=== PATIENT | female | born 1980 | race Caucasian/White ===

== ENCOUNTER → 2017-10-13 | Outpatient (CLI) | payer BC | END | disposition home or self-care (01) | LOC: C.PAPS 11:54 | PROVIDERS: ATTEND Physician Assistant | DX: Z01.419 Encounter for gynecological examination (general) (routine) without abnormal findings (principal); R87.616 Satisfactory cervical smear but lacking transformation zone ==

== ENCOUNTER → 2017-10-27 | Outpatient (CLI) | payer BC ==
--- NOTE | 2017-10-28 07:50 | MAMMOGRAPHY REPORT ---
BILATERAL DIGITAL DIAGNOSTIC MAMMOGRAM TOMOSYNTHESIS WITH CAD AND TARGETED BILATERAL ULTRASOUND: 10/27 CLINICAL HISTORY: The patient reports a itchy rash next to her right nipple; the rash has improved bu t the area is still itchy. She also reports that her doctors felt possible lumps in the right superi or breast and left inferior breast during clinical exams. TECHNIQUE: Breast tomosynthesis in addition to standard 2D mammography was performed. Current study was also evaluated with a Computer Aided Detection (CAD) system. Bilateral CC and MLO 2D and tomosyn thesis images were obtained. COMPARISON: Comparison is made to exams dated: 03/28/2013 ultrasound biopsy, 03/19/2013 ultrasound, an d 03/19/2013 mammogram - [facility]. BREAST COMPOSITION: The tissue of both breasts is heterogeneously dense, which may obscure small mas ses. FINDINGS: There is a lobulated partially circumscribed and partially obscured 15 mm mass within the r ight upper outer quadrant which is newly visualized compared to the prior 2012 exam. There is a lobu lated 2.6 x 1.3 cm mass within the left upper inner quadrant which does not appear significantly durán ged compared to the 2013 exam although ultrasound was performed. The remainder of both breasts demon strate no suspicious masses, calcifications, or areas of architectural distortion. A biopsy clip is again noted within the right central breast from prior benign biopsy which yielded a fibroadenoma. Targeted ultrasound was performed of the area of the palpable abnormality pointed out by the patient, in the right breast at 12:00 centered around 9 cm from the nipple. No suspicious masses or other mcdaniel spicious sonographic abnormalities are seen in this region. Incidentally noted were a few small melissa gn cysts, including a 5 mm simple cyst in the right 12:00 breast, 6 cm from the nipple and a 4 mm sim ple cyst in the right breast at 12:00, 5 cm from the nipple. In the right breast at 11:00, 5 cm from the nipple, there is a lobulated hypoechoic solid mass which measures 1.6 x 0.6 x 1.5 cm. This aretha esponds with the newly visualized mammographic mass and is indeterminate. A round hypoechoic 4 x 3 x 4 mm mass is also seen within the right 1130 breast, 5 cm from the nipple, which may represent a com plicated cyst versus solid mass such as a fibroadenoma. Targeted ultrasound was performed of the area of the palpable lump in the left breast pointed out by the patient. She cannot pinpoint the exact location of the lump but pointed to the inferior breast f rom approximately 5 to 7:00. Therefore, ultrasound was performed of this region which shows no suspi cious masses or other suspicious sonographic abnormalities. In the left 10:00 breast, 7 cm from the nipple, there is a lobulated 2.3 x 0.7 x 1.2 cm mass, which is predominantly anechoic but contains nu merous internal septations. This corresponds with the mammographic mass and could represent fibrocys tic changes versus a papillary lesion. Although this has not significantly changed compared to the 2 013 exam, ultrasound-guided biopsy is recommended to exclude the possibility of a papillary lesion. IMPRESSION: ACR BI-RADS CATEGORY 4: SUSPICIOUS, TARGETED ULTRASOUND ACR BI-RADS CATEGORY 4: SUSPICIO US 1. No suspicious mammographic or sonographic abnormalities at the sites of bilateral palpable abnorm alities pointed out by the patient. Note that the patient could not pinpoint the exact location of t he lumps felt by her providers although could locate the general regions. Recommend clinical follow- up for palpable breast lumps. Also recommend clinical follow-up for the improving right breast rash; if the rash does not resolve then consider skin punch biopsy. 2. Hypoechoic 1.6 cm mass in the right 11:00 breast. The mass is indeterminate and ultrasound-guide d core needle biopsy is recommended for further evaluation. This may represent a fibroadenoma. Pend ing benign pathology results, recommend follow-up targeted ultrasound in 6 months to evaluate a small er hypoechoic 4 mm mass in the right 11:30 breast which is probably benign and may represent a compli cated cyst versus fibroadenoma. 3. Lobulated 2.3 cm mass in the left 10:00 breast. the mass is indeterminate and ultrasound-guided core needle biopsy is recommended for further evaluation. This may represent fibrocystic changes or a papillary lesion. A phone call was made to the physician's office to confirm faxed results were received. The patient has been verbally notified of the results. She tentatively scheduled the biopsies before leaving the department. Approximately 10% of breast cancers are not detected with mammography. A negative mammographic report should not delay biopsy if a clinically suggestive mass is present. Briana Logan M.D. ah/:10/27/2017 10:38:03 Mask Layout Designer: Romana PEARSON)(Latoya), [facility] letter sent: Abnormal 4/5 BI-RADS Code: ACR BI-RADS Category 4: Suspicious Ultrasound BI-RADS: ACR BI-RADS Category 4: Suspici ous
== END | disposition home or self-care (01) ==
LOC: C.MAMM 09:33
PROVIDERS: ATTEND Family Medicine
DX: N63.10 Unspecified lump in the right breast, unspecified quadrant (principal); N63.20 Unspecified lump in the left breast, unspecified quadrant

== ENCOUNTER → 2017-11-10 | Outpatient (CLI) | payer BC ==
--- NOTE | 2017-11-10 10:30 | Discharge Instructions ---
Discharge Instructions Procedure Procedure Date: November 10, 2017. Reason for visit: Bilateral Masses. Discharge Discharge Date: November 10, 2017. Discharge Diagnosis: status post breast biopsy Instructions Activity Recommendations: Additional Limitations (see below) Return to School/Work: no limitations Recommended Home Diet: No Limitations Provider Instructions: ACTIVITY RECOMMENDATIONS: * No lifting, pushing, pulling or exercising the affected side for three days. RETURN TO SCHOOL/WORK: * You may return to work/school after the procedure, but do not perform any strenuous activities for 24 to 48 hours. MEDICATIONS: * Tylenol (two 325 mg) every four to six hours if needed for mild pain (if not allergic to Tylenol). DIET: * Resume previous diet. SPECIAL CARE INSTRUCTIONS: * Keep biopsy site dry for 24 hours. May shower after 24 hours, but do not soak (bathe) incision. * May remove Tegaderm (plastic patch) tomorrow AFTER showering. * Leave the steri-strips on for one week. Allow the steri-strips to fall off by themselves. If not off after one week, you may remove them. You may place a Bandaid crosswise over the strips, if desired. * Apply ice 10 minutes on and 10 minutes off as needed. * Wear a bra at bedtime to sleep more comfortably for 2-3 days. * Your referring physician should have the results after approximately 5 to 7 business days. * Call for unusual bleeding, fever, drainage, etc or if you have any questions call during normal business hours or after hours call Dr Logan, [phone]. FOLLOW UP VISIT: Follow-up with Referring Physician as scheduled. Karin Camaray Recommendations: Call your doctor if: * Temperature above 101 degrees * Pain not relieved by pain medicine ordered * There is increased drainage or redness from any incision * You have any unanswered questions or concerns. Your Doctors Instructions noted above were prepared by provider Briana Logan. Patient Signature Section: Patient Instructions Signature Page Enma Irby Patient (or Guardian) Signature/Date: I have read and understand the instructions given to me by my caregivers. Caregiver/RN/Doctor Signature/Date: The above-named patient and/or guardian has received patient instructions on this date. + Original Patient Signature Page (only) stays with chart. Please make copy for patient.
--- NOTE | 2017-11-10 14:17 | MAMMOGRAPHY REPORT ---
ULTRASOUND GUIDED BIOPSY LEFT BREAST: 11/10/2017 CLINICAL HISTORY: Left 10:00 breast mass. PATIENT CONSENT: The procedure, risks and benefits were discussed with the patient and informed writt en consent was obtained. A timeout was performed immediately prior to the procedure. PROCEDURE DESCRIPTION: With ultrasound guidance, aseptic technique, and lidocaine as the local anesth etic (1% lidocaine to anesthetize the skin and 1% lidocaine with epinephrine to anesthetize the deepe r tissues), the mass of concern in the left 10:00 breast was sampled 4 times with a 14-gauge Achieve biopsy needle. Immediately thereafter, with ultrasound guidance, aseptic technique, and lidocaine as the local anesthetic, a metallic localizer clip was placed centrally in the mass. Direct pressure w as applied to the site immediately post procedure and hemostasis was achieved. Postprocedure unilate ral mammograms were performed to confirm placement of the clip in the expected location of the breast mass. The patient tolerated the procedure without complication. She was given wound care instructi ons. The specimens were sent to pathology for analysis. COMPARISON: Comparison is made to exams dated: 10/27/2017 ultrasound and 10/27/2017 mammogram - [facility]. IMPRESSION: ULTRASOUND GUIDED BIOPSY Ultrasound-guided core needle biopsy of the left 10:00 breast mass, with clip placement. The patient will receive pathology results from her referring provider. Briana Logan M.D. /:11/10/2017 10:53:09 Sports Medicine Specialist: Milla PEARSON)(Latoya), [facility]
--- NOTE | 2017-11-10 14:17 | MAMMOGRAPHY REPORT ---
ULTRASOUND GUIDED BIOPSY RIGHT BREAST: 11/10/2017 CLINICAL HISTORY: Right 11:00 breast mass. PATIENT CONSENT: The procedure, risks and benefits were discussed with the patient and informed writt en consent was obtained. A timeout was performed immediately prior to the procedure. PROCEDURE DESCRIPTION: With ultrasound guidance, aseptic technique, and lidocaine as the local anesth etic (1% lidocaine to anesthetize the skin and 1% lidocaine with epinephrine to anesthetize the deepe r tissues), the mass of concern in the right 11:00 breast was sampled 4 times with a 14-gauge Achieve biopsy needle. Immediately thereafter, with ultrasound guidance, aseptic technique, and lidocaine a s the local anesthetic, a metallic localizer clip was placed centrally in the mass. Direct pressure was applied to the site immediately post procedure and hemostasis was achieved. Postprocedure unilat eral mammograms were performed to confirm placement of the clip in the expected location of the breas t mass. The patient tolerated the procedure without complication. She was given wound care instruct ions. The specimens were sent to pathology for analysis. COMPARISON: Comparison is made to exams dated: 10/27/2017 ultrasound, 10/27/2017 mammogram, 03/28/2013 ultrasound biopsy, and 03/19/2013 ultrasound - [facility]. IMPRESSION: ULTRASOUND GUIDED BIOPSY Ultrasound-guided core needle biopsy of the right 11:00 breast mass, with clip placement. The patien t will receive pathology results from her referring provider. Pending benign pathology results, pamela mmend follow-up targeted ultrasound in 6 months to reevaluate a right 1130 breast mass. Briana Logan M.D. ah/:11/10/2017 10:52:11 Tucking Machine Operator: Milla PEARSON)(M), [facility]
--- NOTE | 2017-11-10 14:17 | MAMMOGRAPHY REPORT ---
BILATERAL DIGITAL DIAGNOSTIC MAMMOGRAM TOMOSYNTHESIS: 11/10/2017 CLINICAL HISTORY: Status post bilateral breast biopsies. TECHNIQUE: Breast tomosynthesis in addition to standard 2D mammography was performed. Postprocedura l bilateral CC and ML tomosynthesis images were obtained. COMPARISON: Comparison is made to exams dated: 11/10/2017 ultrasound biopsy, 10/27/2017 ultrasound, 03/2018 mammogram, 03/28/2013 ultrasound biopsy, 03/19/2013 ultrasound, and 03/19/2013 mammogram - [facility]. BREAST COMPOSITION: The tissue of both breasts is heterogeneously dense, which may obscure small mas ses. FINDINGS: A new wing-shaped biopsy marker clip is seen at the site of the biopsied mass in the right 11:00 breast. A new ribbon-shaped biopsy marker clip is seen at the site of the biopsied mass in the left 10:00 breast. A ribbon-shaped biopsy marker clip is seen within the right central breast from p rior benign biopsy. No significant postbiopsy hematoma is seen. IMPRESSION: POST PROCEDURE IMAGING FOR MARKER PLACEMENT New biopsy marker clips status post bilateral breast biopsies. Pathology results are pending. Vickie dolan benign pathology results, recommend follow-up targeted ultrasound of the right breast in 6 months to reevaluate a small mass in the right 11:30 breast. Approximately 10% of breast cancers are not detected with mammography. A negative mammographic report should not delay biopsy if a clinically suggestive mass is present. Briana Logan M.D. /:11/10/2017 10:55:10 Exchange Specialist: Milla RUCKER(R)(M), [facility] BI-RADS Code: Post Procedure Imaging For Marker Placement
== END | disposition home or self-care (01) ==
LOC: C.MAMM 09:45
PROVIDERS: ATTEND Family Medicine
DX: N63.20 Unspecified lump in the left breast, unspecified quadrant (principal); N63.10 Unspecified lump in the right breast, unspecified quadrant; D24.1 Benign neoplasm of right breast; N60.12 Diffuse cystic mastopathy of left breast